=== PATIENT | male | born 1965 | race Caucasian/White ===

== ENCOUNTER 2018-02-08 22:13 | Emergency (ER) | payer OTHER ==
[2018-02-08 22:22] VITALS: O2SAT 96
[2018-02-08] MEDS ORDERED: Lidocaine 2% w Epi 1:100,000 Inj IJ STA (22:36)
[2018-02-08] MEDS ORDERED: Povidone Iodine Oint 10% Foilpak UD ONE (22:37)
--- NOTE | 2018-02-08 22:53 | ED PDOC ---
HPI: Trauma/Fall - HPI Time Seen by Provider: 02/08/18 22:28 Chief Complaint (Nursing): Trauma Chief Complaint (Provider): fall History Per: Other (EMS report) History/Exam Limitations: intoxication Onset/Duration Of Symptoms: Unknown Injury Occurred (Timing): Just Before Arrival Additional Complaint(s): Admits to drinking heavily tonight. tripped and fell Sustained multiple abrasions/laceration. Unknown LOC Denies nausea. Denies pain. Past Medical History Reviewed: Historical Data, Nursing Documentation, Vital Signs Vital Signs: Last Vital Signs Temp 98.4 F 02/08/18 22:18 Pulse 98 H 02/08/18 22:18 Resp 17 02/08/18 22:18 BP 114/81 02/08/18 22:18 Pulse Ox 96 02/08/18 22:18 - Medical History PMH: Denies: HTN - Surgical History Surgical History: Hernia Repair (Right Inguinal Hernia) - Family History Family History: States: Unknown Family Hx - Social History Current smoker - smoking cessation education provided: Yes Alcohol: Occasional Drugs: Denies - Immunization History Hx Tetanus Toxoid Vaccination: No Hx Influenza Vaccination: No - Home Medications Home Medications: Ambulatory Orders Medication Instructions Recorded No Known Home Med 01/15/16 - Allergies Allergies/Adverse Reactions: Allergies Allergy/AdvReac Type Severity Reaction Status Date / Time No Known Allergies Allergy Unverified 01/15/16 10:02 Review of Systems ROS Statement: Except As Marked, All Systems Reviewed And Found Negative (and as per HPI. Unreliable due to intoxication) Skin: Positive for: Lesions Neurological: Positive for: Dizziness Physical Exam - Reviewed Nursing Documentation Reviewed: Yes Vital Signs Reviewed: Yes - Physical Exam Appears: Positive for: No Acute Distress Head Exam: Positive for: NORMOCEPHALIC (laceration LEFT lateral brow, abrasion LEFT periorbital area with edema lower periorbital area) Skin: Positive for: Warm, Dry Eye Exam: Positive for: EOMI, PERRL, Conjunctival injection ENT: Positive for: Pharynx Is (clear), Other (AOB) Neck: Positive for: Painless ROM, Trachea Midline Cardiovascular/Chest: Positive for: Regular Rate, Rhythm. Negative for: Murmur Respiratory: Positive for: Normal Breath Sounds. Negative for: Wheezing Gastrointestinal/Abdominal: Positive for: Soft. Negative for: Tenderness Back: Positive for: Normal Inspection Extremity: Positive for: Other (LEFT shoulder: abrasion superficial anterior shoulder, FROM, strength 5/5. LEFT hand: abrasion dorsum, FROM, mild swelling head of 2n metcarp. LEFT foot: abrasion superficial laceration great toe with swelling ) Neurologic/Psych: Positive for: Alert, Oriented (x2), Other (slurred speech). Negative for: Motor/Sensory Deficits - Laboratory Results Result Diagrams: 02/09/18 00:20 02/09/18 00:20 - ECG O2 Sat by Pulse Oximetry: 96 Medical Decision Making Medical Decision Makin CT Head FINDINGS: Brain: No acute intracranial hemorrhage. No abnormal extra-axial fluid collection. No herniation. Patent basal cisterns. Preserved su-white matter differentiation. No evidence of acute ischemia. No evident intracranial mass. Ventricles: No ventriculomegaly. Bones/joints: No evident acute fracture. Sinuses: The imaged paranasal sinuses are clear. Mastoid air cells: The mastoid air cells are clear. Orbits: No evident abnormality of the intraorbital contents. Soft tissues: Left frontal scalp contusion. Left periorbital soft tissue contusion. No radiopaque foreign body. IMPRESSION: 1. No acute intracranial findings. 2. Left frontal scalp contusion. Left periorbital soft tissue contusion. Dictated and Authenticated by: Alexa Arnett MD 02/08/2018 11:51 PM Eastern Time ([place] & [place]) 2358 CT Cervial Spine FINDINGS: Vertebrae: The spine is imaged from the skull base through the top of T4. No acute fracture. Normal alignment. Discs/Spinal canal/Neural foramina: Mild multilevel degenerative changes. No evident acute abnormality within the spinal canal. Soft tissues: No prevertebral soft tissue swelling or other evident acute abnormality. Lung apices: No pleural fluid collection, pneumothorax, or airspace consolidation in the imaged portion of the thorax. IMPRESSION: No acute findings. Dictated and Authenticated by: Alexa Arnett MD 02/08/2018 11:58 PM Eastern Time ([place] & [place]) 0003 CT Maxillofacial FINDINGS: Bones/joints: No acute fracture. Soft tissues: Left periorbital and left cheek soft tissue contusions. No radiopaque foreign body. Orbits: No evident abnormality of the intraorbital contents. Sinuses: The paranasal sinuses are clear. IMPRESSION: 1. No acute fracture. 2. Left periorbital and left cheek soft tissue contusions. Dictated and Authenticated by: Alexa Arnett MD 02/09/2018 12:03 AM Eastern Time ([place] & [place]) 0000 Patient is transferred from my care to Dr. Beth's care pending sobriety. Procedures - Laceration/Wound Repair LEFT eyebrow Wound Length (cm): 3 Wound's Depth, Shape: irregular, contused tissue Wound Explored: clean (no palpable galea tear) Irrigated w/ Saline (ccs): 250 Betadine Prep?: Yes Anesthesia: Lidocaine w/ Epi Volume Anesthetic (ccs): 8 Wound Repaired With: Sutures Suture Size/Type: 4:0, proline Number of Sutures: 8 Layer Closure?: Yes Deep Layer Suture Size/Type: 4:0 Number Deep Layer Sutures: 2 Wound Complexity: Intermediate Sterile Dressing Applied?: Yes (bandaid with bacitracin) Disposition - Clinical Impression Clinical Impression: Alcohol intoxication, Laceration - Disposition Disposition Time: 00:30 Condition: IMPROVED Additional Instructions: follow up for suture removal either with your primary doctor or in the ER in 5- 7 days return to the ED sooner if signs of infection cut down on alcohol intoxication Print Language: MAORI Patient Signed Over To: Shilpa Beth Y Handoff Comments: Pending labs, sobriety
[2018-02-08] MEDS ORDERED: Tdap Vaccine 0.5 ml Vial (10-64 yrs) IM ONE (22:56)
[2018-02-09] MEDS ORDERED: Bacitracin 500 Units/gm Oint Foilpak UD TOP ONE (00:07)
[2018-02-09] MEDS ORDERED: Tdap Vaccine 0.5 ml Vial (10-64 yrs) IM ONE (00:20)
--- NOTE | 2018-02-09 00:20 | ED PDOC ---
- Laboratory Results Result Diagrams: 02/09/18 00:20 02/09/18 00:20 - ECG O2 Sat by Pulse Oximetry: 96 (RA) Pulse Ox Interpretation: Normal Medical Decision Making Medical Decision Makin Patient is transferred from Dr. Neil costa to myself pending sobriety. 0200 pt resting in no distress 0430 Patient is sober, awake, alert and stable for discharge home. Scribe Attestation: Documented by Saloni Gaston, acting as a scribe for Shilpa Carrillo MD. Provider Scribe Attestation: All medical record entries made by the Scribe were at my direction and personally dictated by me. I have reviewed the chart and agree that the record accurately reflects my personal performance of the history, physical exam, medical decision making, and the department course for this patient. I have also personally directed, reviewed, and agree with the discharge instructions and disposition. Disposition Counseled Patient/Family Regarding: Diagnosis, Need For Followup - Clinical Impression Clinical Impression: Alcohol intoxication, Laceration - POA Present On Arrival: None - Disposition Disposition: Routine/Home Disposition Time: 04:00 Condition: IMPROVED Additional Instructions: follow up for suture removal either with your primary doctor or in the ER in 5- 7 days return to the ED sooner if signs of infection cut down on alcohol intoxication Print Language: [place] CITIZ[place]
[2018-02-09 00:47] LABS: BASO % 0.6 % (0.0-2.0); EOS % 0.6 % (0.0-4.0); HEMOGLOBIN 17.1 g/dL (12.0-18.0); LYMPH % 25.5 % (20.0-40.0); MEAN CELL VOLUME 102.3 fl (80.0-94.0); MEAN CORPUSCULAR HEMOGLOBIN 34.5 pg (27.0-31.0); MEAN CORPUSCULAR HGB CONC 33.7 g/dL (33.0-37.0); MONO # 0.7 K/uL (0.0-0.8); MONO % 9.1 % (0.0-10.0); NEUT # 5.1 K/uL (1.8-7.0); NEUT % 64.2 % (50.0-75.0); RBC 4.95 Mil/uL (4.40-5.90); RED CELL DISTRIBUTION WIDTH 14.6 % (11.5-14.5)
[2018-02-09 00:52] LABS: PROTHROMBIN TIME 11.2 Seconds (9.8-13.1)
[2018-02-09 00:53] LABS: ALB/GLOB RATIO 1.3 (1.0-2.1); ALBUMIN 4.4 g/dL (3.5-5.0); ALT/SGPT 119 U/L (21-72); AST/SGOT 86 U/L (17-59); BLOOD UREA NITROGEN 14 mg/dl (9-20); GFR AFRICAN-AMERICAN > 60; GFR NON-AFRICAN AMERICAN > 60
--- NOTE | 2018-02-09 10:38 | CT ---
PROCEDURE: CT HEAD WITHOUT CONTRAST. HISTORY: head injury intoxication COMPARISON: None available. TECHNIQUE: Axial computed tomography images were obtained through the head/brain without intravenous contrast. Radiation dose: Total exam DLP = 1087.5 mGy-cm. This CT exam was performed using one or more of the following dose reduction techniques: Automated exposure control, adjustment of the mA and/or kV according to patient size, and/or use of iterative reconstruction technique. FINDINGS: HEMORRHAGE: No intracranial hemorrhage. BRAIN: No mass effect or edema. No atrophy or chronic microvascular ischemic changes. VENTRICLES: Unremarkable. No hydrocephalus. CALVARIUM: Unremarkable. PARANASAL SINUSES: Unremarkable as visualized. No significant inflammatory changes. MASTOID AIR CELLS: Unremarkable as visualized. No inflammatory changes. OTHER FINDINGS: Left frontal scalp soft tissue swelling and left periorbital soft tissue swelling also noted. IMPRESSION: No evidence of acute intracranial hemorrhage mass effect or midline shift. Left frontal scalp and left periorbital soft tissue contusion. Preliminary report was submitted by [facility].
--- NOTE | 2018-02-09 11:10 | CT ---
PROCEDURE: CT MAXILLOFACIAL BONES WITHOUT CONTRAST HISTORY: intox head injury COMPARISON: None TECHNIQUE: Contiguous axial CT images of the maxillofacial bones were obtained. Coronal and sagittal reformats were generated. Radiation dose: Total exam DLP = 735.66 mGy-cm. This CT exam was performed using one or more of the following dose reduction techniques: Automated exposure control, adjustment of the mA and/or kV according to patient size, and/or use of iterative reconstruction technique. FINDINGS: NASAL BONES: Unremarkable. ORBITS: No evidence of acute fracture. Mild left periorbital soft tissue swelling is noted. PARANASAL SINUSES/ MASTOIDS: Clear. MAXILLA: Unremarkable. MANDIBLE/ TEMPOROMANDIBULAR JOINTS: Unremarkable. SKULL BASE: Unremarkable. TEMPORAL BONES: Middle ears and mastoid grossly unremarkable. OTHER FINDINGS: None. IMPRESSION: No evidence of acute fracture. Mild left periorbital soft tissue swelling. Preliminary report was submitted by [facility].
--- NOTE | 2018-02-09 11:38 | CT ---
PROCEDURE: CT Cervical Spine without contrast HISTORY: head injury intox COMPARISON: None available. TECHNIQUE: Axial computed tomography images were obtained of the cervical spine without the use of intravenous contrast. Coronal and sagittal reformatted images were created and reviewed. Radiation dose: Total exam DLP = 623.52 mGy-cm. This CT exam was performed using one or more of the following dose reduction techniques: Automated exposure control, adjustment of the mA and/or kV according to patient size, and/or use of iterative reconstruction technique. FINDINGS: VERTEBRAE: No fracture. Normal alignment. No destructive bony lesion. DISCS/SPINAL CANAL/NEURAL FORAMINA: Disc osteophytic ridge at C3-C4 and C6-C7. Mild disc bulge is noted at C2-C3. Discs heights are grossly preserved. PARASPINAL SOFT TISSUES: Unremarkable. OTHER FINDINGS: None. IMPRESSION: No acute fracture. Degenerative changes. Please note that this report is in general agreement with the preliminary report provided by [facility].
--- NOTE | 2018-02-09 11:58 | RAD ---
PROCEDURE: Left Hand Radiographs. HISTORY: hand injury COMPARISON: None. FINDINGS: BONES: Normal. No fracture. JOINTS: Normal. No osteoarthritic changes. SOFT TISSUES: Normal. OTHER FINDINGS: None. IMPRESSION: No acute fracture.
--- NOTE | 2018-02-09 12:02 | RAD ---
PROCEDURE: Left Foot Radiographs. HISTORY: foot injury COMPARISON: None. FINDINGS: BONES: Ossific/calcific densities in the medial aspect of the left 1st proximal phalanx. Hallux valgus. JOINTS: Mild degenerative changes involving the 1st metacarpophalangeal joint. SOFT TISSUES: Mild soft tissue swelling in the distal 1st digit. OTHER FINDINGS: None. IMPRESSION: Possible avulsion fracture in the medial aspect of the 1st proximal phalanx. Hallux valgus.
[2018-02-10 08:14] VITALS: BP 130/92; PULSE 88; RESP 18; TEMP 9838
== END 2018-02-09 04:15 | disposition home or self-care (01) ==
LOC: H.ER 22:13
DX: S69.92XA Unspecified injury of left wrist, hand and finger(s), initial encounter (principal); S01.112A Laceration without foreign body of left eyelid and periocular area, initial encounter; F10.129 Alcohol abuse with intoxication, unspecified; S00.03XA Contusion of scalp, initial encounter; F17.200 Nicotine dependence, unspecified, uncomplicated; W01.0XXA Fall on same level from slipping, tripping and stumbling without subsequent striking against object, initial encounter; Y90.8 Blood alcohol level of 240 mg/100 ml or more
CPT/HCPCS: 12011; 70450; 70486; 72125; 73130; 73630; 80053; 85025; 85610; 85730; 86850; 86900; 90471; 90715; 99285; G0480

== ENCOUNTER 2018-07-31 08:10 | Emergency (ER) | payer OTHER ==
[2018-07-31 08:35] VITALS: BP 117/83; PULSE 69; RESP 18; TEMP 98.3; O2SAT 98
--- NOTE | 2018-07-31 09:48 | ED PDOC ---
HPI: Back Time Seen by Provider: 07/31/18 09:42 Chief Complaint (Nursing): Back Pain Chief Complaint (Provider): back pain History Per: Patient (53 y/o male here with lower back pain right sided x few days after lifting heavy object at work. Has used advil/ice without im provement. No h/o herniated disc. NO h/o cancer.) Past Medical History Reviewed: Historical Data, Nursing Documentation, Vital Signs Vital Signs: Last Vital Signs Temp 98.3 F 07/31/18 08:33 Pulse 69 07/31/18 08:33 Resp 18 07/31/18 08:33 BP 117/83 07/31/18 08:33 Pulse Ox 98 07/31/18 08:33 - Medical History PMH: Denies: HTN - Surgical History Surgical History: Hernia Repair (Right Inguinal Hernia) - Family History Family History: States: Unknown Family Hx - Immunization History Hx Tetanus Toxoid Vaccination: No Hx Influenza Vaccination: No - Home Medications Home Medications: Ambulatory Orders Medication Instructions Recorded Naproxen 375 mg PO Q8 PRN #21 tablet 07/31/18 diaZEpam [Valium] 5 mg PO Q8 PRN #4 tab 07/31/18 - Allergies Allergies/Adverse Reactions: Allergies Allergy/AdvReac Type Severity Reaction Status Date / Time No Known Allergies Allergy Unverified 07/31/18 09:39 Review of Systems ROS Statement: Except As Marked, All Systems Reviewed And Found Negative Musculoskeletal: Positive for: Back Pain Physical Exam - Reviewed Nursing Documentation Reviewed: Yes Vital Signs Reviewed: Yes - Physical Exam Appears: Positive for: Well, Non-toxic, No Acute Distress Head Exam: Positive for: ATRAUMATIC, NORMAL INSPECTION, NORMOCEPHALIC Skin: Positive for: Normal Color, Warm, DRY Eye Exam: Positive for: EOMI, Normal appearance, PERRL ENT: Positive for: Normal ENT Inspection Neck: Positive for: Normal, Painless ROM Cardiovascular/Chest: Positive for: Regular Rate, Rhythm Respiratory: Positive for: CNT, Normal Breath Sounds Gastrointestinal/Abdominal: Positive for: Normal Exam, Soft Back: Positive for: Normal Inspection, Vertebral Tenderness (right paralumbar tenderness/ right gluteal tenderness.) Extremity: Positive for: Normal ROM Neurologic/Psych: Positive for: Alert, Oriented - ECG O2 Sat by Pulse Oximetry: 98 Disposition - Clinical Impression Clinical Impression: Back strain - Patient ED Disposition Is Patient to be Admitted: No - Disposition Referrals: [facility] [place] [Outside] Disposition: Routine/Home Disposition Time: 09:46 Condition: FAIR Prescriptions: diaZEpam [Valium] 5 mg PO Q8 PRN #4 tab PRN Reason: Muscle Spasm Naproxen 375 mg PO Q8 PRN #21 tablet PRN Reason: Pain, Moderate (4-7) Instructions: Muscle Strain (DC) Forms: [facility] ED School/Work Excuse Print Language: SLOVEN[place]
== END 2018-07-31 11:10 | disposition home or self-care (01) ==
LOC: H.ER 08:10
DX: S39.012A Strain of muscle, fascia and tendon of lower back, initial encounter (principal); X50.9XXA Other and unspecified overexertion or strenuous movements or postures, initial encounter; Y99.0 Civilian activity done for income or pay
CPT/HCPCS: 96372; 99283; J1885